=== PATIENT | male | born 1960 | race Caucasian/White ===

== ENCOUNTER 2017-02-18 11:57 | Emergency (ER) | payer OTHER ==
[2017-02-18 12:09] VITALS: BP 118/71
--- NOTE | 2017-02-18 12:39 | UCPHY ---
H & P Patient Type: New Chief Complaint Nursing Narrative: RIGHT EYELID LACERATION OCCURRED TODAY WHILE PLAYING BASKETBALL 1 HOUR DOCTOR OF PHARMACY, ELBOW HIT PT. DENIES LOC, DENIES VISUAL CHANGES. BLEEDING CONTROLLED. Time Seen by Provider: 02/18/17 12:00 HPI/ROS: Chief complaint: Right eyelid laceration HPI: 56-year-old male was playing basketball when he sustained an elbow injury to his right eye. Patient states that the elbow was coming up and did not actually strike him in the eye but he did can feel his upper eyelid get caught. Denies any vision changes. No eye pain. Does have a laceration of his upper eyelid. No headache. No nausea or vomiting. There is no loss of consciousness. Tetanus is up-to-date. ROS: 10 point Review of Systems is negative except as noted in the HPI. Physical exam: General: Awake, alert, no acute distress Eyes: There is a 1 cm stellate laceration of his upper eyelid. Does not cross the eyelid margin or border. It is into the subcutaneous only. There is no hyphema. Visual acuity is intact. There is no evidence of any ocular trauma at this time. - Personal History Current Tetanus Diphtheria and Acellular Pertussis (TDAP): Yes Tetanus Vaccine Date: WITHIN 10 YRS - Medical/Surgical History Other PMH: DENIES - Family History Significant Family History: No pertinent family hx - Social History Smoking Status: Never smoked Constitutional: Initial Vital Signs Temperature (C) 36.9 C 02/18/17 12:05 Heart Rate 66 02/18/17 12:05 Respiratory Rate 18 02/18/17 12:05 Blood Pressure 118/71 02/18/17 12:05 O2 Sat (%) 94 02/18/17 12:05 O2 Delivery Mode Room Air Allergies/Adverse Reactions: No Known Allergies Allergy (Unverified 02/18/17 12:04) Home Medications: Medication Instructions Recorded Lipitor 02/18/17 Medical Decision Making Procedures: Procedure: Laceration repair. Verbal consent was obtained from the patient. The 1 cm laceration on the right eyelid was anesthetized in the usual fashion. The wound was irrigated, draped and explored to its base with a gloved finger. There were no deep structures involved. The wound was repaired with 2, 6-0 fast-absorbing gut sutures. The wound repair was uncomplicated. The procedure was performed by myself. Departure - Departure Disposition: Home, Routine, Self-Care Clinical Impression: Laceration Condition: Good Instructions: Care For Your Absorbable Stitches (ED) Additional Instructions: Follow up with primary care physician for any redness, discharge from the wound or any concerns. Return emergency depart for any vision changes, increasing eye pain, blurry vision, double vision, or any other concerns. Referrals: Jacek Rob MD [Primary Care Provider] - As per Instructions - PQRS PQRS Measurement: NA
[2017-02-18 13:43] VITALS: PULSE 65; RESP 16; TEMP 98.6; O2SAT 92
== END 2017-02-18 12:57 | disposition home or self-care (01) ==
LOC: CED 11:57
PROC: 08QNXZZ Repair Right Upper Eyelid, External Approach (ICD-10-PCS; principal; 2017-02-18)
DX: S01.111A Laceration without foreign body of right eyelid and periocular area, initial encounter (principal); W50.0XXA Accidental hit or strike by another person, initial encounter; Y93.67 Activity, basketball
CPT/HCPCS: 12011-PO; 99202-PO; G0463-PO

== ENCOUNTER → 2017-08-24 | Outpatient (CLI) | payer OTHER | LOC: FIMAGING 09:47 | PROVIDERS: ATTEND Internal Medicine | DX: N50.819 Testicular pain, unspecified (principal); L72.0 Epidermal cyst ==

== ENCOUNTER → 2018-01-03 | Outpatient (CLI) | payer OTHER | LOC: CIMAGING 14:39 | PROVIDERS: ATTEND Surgery | DX: K40.90 Unilateral inguinal hernia, without obstruction or gangrene, not specified as recurrent (principal) | CPT/HCPCS: 76882-PO ==

== ENCOUNTER 2018-02-08 05:39 | Day surgery (SDC) | payer OTHER ==
--- NOTE | 2018-02-05 16:47 | GHP ---
[f rep st] PREOP HISTORY AND PHYSICAL DATE OF ADMISSION: 02/08/2018 CHIEF COMPLAINT: Right inguinal hernia. HISTORY OF PRESENT ILLNESS: The patient is a 57-year-old man who presented to the office complaining of right groin pain. The pain is localized to his groin and radiates laterally. He has difficulty sleeping. He was seen by Dr. Parish, who does not believe that the issue is derived from his hip. He had a colonoscopy which showed benign polyps. He denies having any difficulty with urination or bow el habits. He notices more discomfort with activity and sit-ups. He had a hernia repair on the left side approximately 10 years ago. PAST SURGICAL HISTORY: ACL repair on the left, left ankle reconstruction, fractured nose, inguinal h ernia repair. ALLERGIES: No known drug allergies. FAMILY HISTORY: None. SOCIAL HISTORY: He denies tobacco, alcohol, or recreational drug use. REVIEW OF SYSTEMS: 10-point review of systems negative aside from HPI. PHYSICAL EXAMINATION: GENERAL: Well-developed, well-nourished man in no acute distress. HEENT: No rmocephalic, atraumatic. No hearing deficits. Pupils equal and round. No scleral icterus. Mucous membranes moist. NECK: Trachea midline. RESPIRATORY: Clear to auscultation bilaterally. No incre ased work of breathing. CARDIOVASCULAR: Regular rate and rhythm. No peripheral edema. ABDOMEN: S oft and nondistended. Previous surgical scars consistent with laparoscopic hernia repair. : Norm al external genitalia. Palpable reducible hernia on the right. No left inguinal hernia on exam. SK IN: Warm and dry. MUSCULOSKELETAL: Normal gait, normal nails. PSYCH: Mood and affect normal. NE URO: Grossly intact. IMPRESSION AND PLAN: A 57-year-old man with a right inguinal hernia. He had previous laparoscopic l eft inguinal hernia repair. He will proceed with da Alexandro right inguinal hernia repair, possible eliu ateral. We discussed risks of surgery including but not limited to heart attack, stroke, blood clots , or . We discussed risk of infection, bleeding, damage to surrounding structures including pascual dder, testicle, or other surrounding structures, or recurrence. He understands the risks and would l zachary to proceed. The patient was additionally seen and evaluated by Dr. Liset Perla, who agrees with the above impression and plan. /[id number]/MODL
[2018-02-08] MEDS ORDERED: ceFAZolin 2 GM/SWFI 2 GM/20 ML SYR IVP ONE (05:56)
[2018-02-08] MEDS ORDERED: LR 1,000 ML IV ONE (05:57)
[2018-02-08] MEDS ORDERED: LIDOCAINE 1% 2 ML INJ ID PRN (05:57)
[2018-02-08] MEDS ORDERED: BUPIVACAINE 0.5% 30 ML SDV ONE (06:45)
--- NOTE | 2018-02-08 06:57 | PDHPUP ---
History & Physical Update H&P update statement: This history and physical update is based on an assessment of the patient which was completed after admission or registration (within 24 hours), but prior to the surgery/procedure. H&P update: H&P reviewed & patient examined, no change in patient's condition since H&P completed
--- NOTE | 2018-02-08 07:02 | PDANEPAE ---
ANE Past Medical History - Cardiovascular History Hx Hypertension: No Hx Arrhythmias: No Hx Chest Pain: No Hx Coronary Artery / Peripheral Vascular Disease: No Hx CHF / Valvular Disease: No Hx Palpitations: No - Pulmonary History Hx COPD: No Hx Asthma/Reactive Airway Disease: No Hx Recent Upper Respiratory Infection: No Hx Oxygen in Use at Home: No Hx Sleep Apnea: No Sleep Apnea Screening Result - Last Documented: Negative - Neurologic History Hx Cerebrovascular Accident: No Hx Seizures: No Hx Dementia: No - Endocrine History Hx Diabetes: No - Renal History Hx Renal Disorders: No - Liver History Hx Hepatic Disorders: No - Neurological & Psychiatric Hx Hx Neurological and Psychiatric Disorders: No - Cancer History Hx Cancer: No - Congenital Disorder History Hx Congenital Disorders: No - GI History Hx Gastrointestinal Disorders: Yes Gastrointestinal History Comment: hx reflux - Other Health History Other Health History: none - Chronic Pain History Chronic Pain: No - Surgical History Prior Surgeries: none ANE Review of Systems Review of Systems: - Exercise capacity METS (RN): 5 METS ANE Patient History - Allergies Allergies/Adverse Reactions: wasp venom Allergy (Severe, Uncoded 01/22/18 10:21) Dyspnea - Home Medications Home Medications: Lipitor 02/18/17 [Last Taken 02/05/18] Aspirin 81mg (*) 01/22/18 [Last Taken 02/01/18] - NPO status NPO Since - Liquids (Date): 02/07/18 NPO Since - Liquids (Time): 18:00 NPO Since - Solids (Date): 02/07/18 NPO Since - Solids (Time): 18:00 - Smoking Hx Smoking Status: Never smoked - Family Anes Hx Family Hx Anesthesia Complications: none ANE Labs/Vital Signs - Vital Signs Blood Pressure: 111/74 Heart Rate: 55 Respiratory Rate: 18 O2 Sat (%): 98 Height: 182.88 cm Weight: 79.379 kg ANE Physical Exam - Airway Neck exam: FROM Mallampati Score: Class 2 Mouth exam: normal dental/mouth exam - Pulmonary Pulmonary: no respiratory distress - Cardiovascular Cardiovascular: regular rate and rhythym - ASA Status ASA Status: II ANE Anesthesia Plan Anesthesia Plan: general endotracheal anesthesia
[2018-02-08] MEDS ORDERED: fentaNYL 250 MCG/5 ML INJ ONE (07:07)
[2018-02-08] MEDS ORDERED: LIDOCAINE 2% 100 MG/5 ML SYR ONE (07:07)
[2018-02-08] MEDS ORDERED: DEXAMETHASONE 4 MG/ML VIAL ONE ×2 (07:07)
[2018-02-08] MEDS ORDERED: MIDAZOLAM 2 MG/2 ML VIAL ONE (07:07)
[2018-02-08] MEDS ORDERED: PROPOFOL 200 MG/20 ML VIAL ONE (07:07)
[2018-02-08] MEDS ORDERED: METOCLOPRAMIDE 10 MG/2 ML VIAL ONE (07:07)
[2018-02-08] MEDS ORDERED: ROCURONIUM 100 MG/10 ML VIAL ONE (07:07)
[2018-02-08] MEDS ORDERED: KETOROLAC 30 MG/1 ML SDV ONE (08:38)
--- NOTE | 2018-02-08 09:00 | POSTOPPROG ---
Post Op Note Date of Operation: 02/08/18 Surgeon: Liset Perla General Ii Farmworker: jc Anesthesiologist: deena Anesthesia: GET(General Endotracheal) Pre-op Diagnosis: RIH Post-op Diagnosis: RIH Indication: 57 yo with lap RIH Procedure: Davinci RIH Findings: Small RIH, sigmoid colon to midline Inf/Abcess present in the surg proc area at time of surgery?: No Depth: Superfical (Skin SQ) EBL: Minimal Specimen(s): none
[2018-02-08] MEDS ORDERED: ALBUTEROL 3 ML DEYVIAL IH PRN (09:13)
[2018-02-08] MEDS ORDERED: ONDANSETRON 4 MG/2 ML VIAL IVP PRN (09:13)
[2018-02-08] MEDS ORDERED: NALOXONE HCL 0.4 MG/ML INJ IVP PRN (09:13)
[2018-02-08] MEDS ORDERED: HYDROmorphONE/DILAUDID 2 MG/ML INJ IVP PRN (09:13)
[2018-02-08] MEDS ORDERED: ACETAMINOPHEN 500 MG TAB PO PRN (09:13)
[2018-02-08] MEDS ORDERED: MEPERIDINE 25 MG/ML SYR IVP PRN (09:13)
[2018-02-08] MEDS ORDERED: oxyCODONE IR 5 MG TAB PO PRN (09:13)
[2018-02-08] MEDS ORDERED: fentaNYL 100 MCG/2 ML INJ IVP PRN (09:13)
[2018-02-08] MEDS ORDERED: HYDROCODONE/APAP 5/325 TAB PO PRN (09:13)
--- NOTE | 2018-02-08 09:14 | POSTANESTH ---
Post Anesthetic Evaluation Cardiovascular Status: Similar to Pre-Op Cond Respiratory Status: Similar to Pre-op Cond. Level of Consciousness/Mental Status: Alert and Oriented, Mildly Sleepy, Arousable Pain Control: Adequate, Prn Tx Ordered Nausea/Vomiting Control: Adequate, Prn Tx Ordered Complications Possibly Related to Anesthesia: None Noted
[2018-02-08 09:39] VITALS: RESP 12
[2018-02-08 09:46] VITALS: PULSE 61
[2018-02-08 10:19] VITALS: BP 114/75; O2SAT 98
[2018-02-08 10:30] VITALS: TEMP 97.5
--- NOTE | 2018-02-10 09:13 | GOP ---
[f rep st] OPERATIVE REPORT DATE OF OPERATION: 02/08/2018 SURGEON: Liset Perla MD FINISHED CLOTH EXAMINER: Etta Pruett PA-C ANESTHESIA: General. ANESTHESIOLOGIST: Jon Sullivan MD PREOPERATIVE DIAGNOSIS: Right inguinal hernia. POSTOPERATIVE DIAGNOSIS: Right inguinal hernia. PROCEDURE PERFORMED: Da Alexandro-assisted right inguinal hernia repair with mesh. FINDINGS: Small right inguinal hernia. Sigmoid colon adhered to midline. SPECIMENS: None. ESTIMATED BLOOD LOSS: Minimal. INDICATIONS: The patient is a 57-year-old man who has a history of a previous laparoscopic left ingu inal hernia repair with mesh, who presents with a right inguinal hernia. He also had symptoms of love k pain as well as pain down his right leg and performed workup which did show a small right inguinal hernia. We discussed that this may not be the cause of all his pain. DESCRIPTION OF PROCEDURE: Patient was brought into the operating room, placed supine on the table; a nd general anesthesia was administered. His abdomen was prepped and draped in the usual sterile fash ion. I infiltrated all sites with 0.5% Marcaine prior to making incisions. I made an incision at hi s umbilicus. I elevated it. I inserted the Veress needle. It passed the hanging drop test. The ab domen insufflated easily to a pressure of 15 mmHg. I placed a trocar at this site with the camera. There were no injuries from Veress needle placement. He did have lower midline adhesions; however, I was able to see his previous left inguinal hernia repair, which appeared intact, as well as a small defect on the right side. I inserted 2 trocars under direct vision, one on the right upper abdomen a nd 1 on the left upper abdomen. I placed him in the Trendelenburg position. I docked the robot and moved to the console. I used the scissors to create a peritoneal flap. I continued my dissection pa st the midline, and I could identify the pubis. His epigastric vessel was dissected and protected to keep this anterior to the plane. I reduced a very small fat containing hernia along the cord and co rd structures, which was lateral to the epigastric vessels. There was no direct inguinal hernia. Th ere was no evidence of femoral hernia. Once I was satisfied with my dissection, I placed a piece of laparoscopic self-fixating ProGrip mesh. I then closed the peritoneal flap and sutured this with 90 V-Loc. The abdomen was infected. It appeared that the midline adhesions included the sigmoid colon. Everything was protected from harm. The ports removed under direct vision. The abdomen allowed to desufflate. I moved back to the console. The instruments were removed. The robot was undocked. S kin closed with 4-0 Monocryl. Dermabond was applied. He was awakened in the operating room, extubat ed and transferred to PACU in stable condition. /[id number]/MODL
== END 2018-02-08 10:25 | disposition home or self-care (01) ==
LOC: FSGY 05:39
PROVIDERS: ATTEND Surgery
PROC: 0YU54JZ Supplement Right Inguinal Region with Synthetic Substitute, Percutaneous Endoscopic Approach (ICD-10-PCS; principal; 2018-02-08 07:15)
DX: K40.90 Unilateral inguinal hernia, without obstruction or gangrene, not specified as recurrent (principal); K21.9 Gastro-esophageal reflux disease without esophagitis; K63.5 Polyp of colon
CPT/HCPCS: C1781; J0690; J1100; J1885; J2001; J2250; J2704; J2765; J3010

== ENCOUNTER → 2018-03-08 | Outpatient (CLI) | payer OTHER ==
[~2018-03-08] MED LIST: IOPAMIDOL (ISOVUE-300) 100 ML BTL ONE
== END ==
LOC: FIMAGING 14:28
PROVIDERS: ATTEND Surgery
DX: L76.82 Other postprocedural complications of skin and subcutaneous tissue (principal); Q62.39 Other obstructive defects of renal pelvis and ureter; M51.36 Other intervertebral disc degeneration, lumbar region
CPT/HCPCS: Q9967

== ENCOUNTER 2018-06-08 07:48 | Emergency (ER) | payer OTHER ==
[2018-06-08 07:55] VITALS: BP 113/67
--- NOTE | 2018-06-08 07:55 | EDPHY ---
H & P Time Seen by Provider: 06/08/18 07:50 HPI/ROS: CHIEF COMPLAINT: Trouble urinating HISTORY OF PRESENT ILLNESS: Surgery on June 05, laser prostatectomy with Burden catheter removed on . Urinated about 2000 mL in the next 24 hr and then since 3:00 p.m. Yesterday no urine output or minimal urine output. He feels a little bit bloated but does not have any testicular or penile symptoms. No fever or chills. He is on antibiotics since his surgery and has a little bit of occasional blood in his urine but no specific dysuria or cloudy urine. REVIEW OF SYSTEMS: Eye: No symptoms ENT: No symptoms Cardiac: No chest pain Pulmonary: Slight cough after surgery but not short of breath Abdomen: No vomiting or diarrhea Musculoskeletal: no back pain Skin: no rash Neuro: No weakness or numbness in legs Constitutional: no fever : HPI A comprehensive 10 point review of systems is otherwise negative aside from elements mentioned in the history of present illness. PAST MEDICAL HISTORY: History and physical dated 02/08/2018 by Alejandra personally reviewed includes left ACL repair, left ankle reconstruction, inguinal hernia repair on the left and the right Social history: Nonsmoker General Appearance: Alert and conversant, cooperative. Eyes: No scleral icterus. ENT, Mouth: Normal mucous membranes. Respiratory: Normal respiratory effort, breath sounds equal, lungs are clear to auscultation. Cardiovascular: Regular rate and rhythm. Gastrointestinal: Abdomen is soft and non tender. Normal male . I do not palpate suprapubic fullness. Neurological: Alert, ambulatory back to the room. Skin: Warm and dry, no rashes. Musculoskeletal: No peripheral edema. Psychiatric: Not agitated. Emergency Department course/MDM: Bedside bladder scan shows approximately 200 mL, my bladder ultrasound shows nondistended bladder. Check creatinine, normal. Encouraged to continue increasing oral fluid intake, does not appear to require catheterization at this time. Follow-up with his urologist. Smoking Status: Never smoked Constitutional: Initial Vital Signs Temperature (C) 36.7 C 06/08/18 07:52 Heart Rate 68 06/08/18 07:52 Respiratory Rate 16 06/08/18 07:52 Blood Pressure 113/67 06/08/18 07:52 O2 Sat (%) 97 06/08/18 07:52 O2 Delivery Mode Room Air Allergies/Adverse Reactions: wasp venom Allergy (Severe, Uncoded 01/22/18 10:21) Dyspnea Home Medications: Medication Instructions Recorded Lipitor 02/18/17 Aspirin 81mg (*) 01/22/18 Departure - Departure Disposition: Home, Routine, Self-Care Clinical Impression: Decreased urine output Condition: Good Instructions: Laser Prostatectomy (DC) Referrals: Jacek Rob MD [Primary Care Provider] - As per Instructions Vinicio Proctor MD [Medical Doctor] - As per Instructions
== END 2018-06-08 08:31 | disposition home or self-care (01) ==
DX: R39.12 Poor urinary stream (principal); Z79.82 Long term (current) use of aspirin
CPT/HCPCS: 82435-PO; 82565-PO; 82947-PO; 84132-PO; 84295-PO; 84520-PO; 85014-PO

== ENCOUNTER → 2018-09-27 | Outpatient (CLI) | payer OTHER ==
[~2018-09-27] MED LIST changes: +GADOBUTROL 10 ML VIAL IVP ONE; +GLUCAGON HCL 0.3 MG in SYRINGE 0.3 ML IVP ONE; -IOPAMIDOL (ISOVUE-300) 100 ML BTL ONE
== END ==
LOC: FIMAGING 09:47
PROVIDERS: ATTEND Physician Assistant
DX: R93.3 Abnormal findings on diagnostic imaging of other parts of digestive tract (principal); R10.31 Right lower quadrant pain
CPT/HCPCS: A9585; J1610

== ENCOUNTER 2018-12-11 22:29 | Emergency (ER) | payer OTHER ==
[2018-12-11] MEDS ORDERED: ONDANSETRON 4 MG/2 ML VIAL ONE (22:49)
[2018-12-11] MEDS ORDERED: ONDANSETRON 4 MG/2 ML VIAL IVP ONE (23:02)
[2018-12-11] MEDS ORDERED: NS 1,000 ML IV ONE (23:02)
--- NOTE | 2018-12-11 23:07 | EDPHY ---
H & P Stated Complaint: ONGOING INTESTIONAL PAIN AND VOMITING, LLQ PAIN Time Seen by Provider: 12/11/18 22:36 HPI/ROS: Chief Complaint: Abdominal pain HPI: 58-year-old male presenting with left-sided abdominal pain which has been my skiing when he for the last several days. At worst is a 10/10. Right now is a 5/10. He is associated with some nausea vomiting. It is described in the left side radiating down to his left groin. No urinary urgency frequency. No fevers or chills. He was told that he had a stone in his left kidney on CT scan about a year ago. No blood in his urine. No fevers or chills. He feels better when he gets up and walks around. There are no other aggravating or alleviating factors. He has been attempting a colon cleanse for the last 2 days with his diet with no relief. ROS: 10 systems were reviewed and were negative except those elements noted in the HPI. PMH: BPH status post green light surgery, hernia repair Social History: No smoking, no alcohol, no recreational drug use Family History: non-contributory Physical Exam: Gen: Awake, Alert, No Distress HEENT: Nose: no rhinorrhea Eyes: PERRLA, EOMI Mouth: Moist mucosa Neck: Supple, no JVD Chest: nontender, lungs clear to auscultation Heart: S1, S2 normal, no murmur Abd: Soft, non-tender, no guarding Back: no CVA tenderness, no midline tenderness Ext: no edema, non-tender Skin: no rash Neuro: CN II-XII intact, Sensation grossly intact, Strength 5/5 in bilateral upper and lower extremities - Personal History Current Tetanus/Diphtheria Vaccine: Yes Current Tetanus Diphtheria and Acellular Pertussis (TDAP): Yes Tetanus Vaccine Date: WITHIN 10 YRS - Medical/Surgical History Hx Asthma: No Hx Chronic Respiratory Disease: No Hx Diabetes: No Hx Cardiac Disease: No Hx Renal Disease: No Hx Cirrhosis: No Hx Alcoholism: No Hx HIV/AIDS: No Hx Splenectomy or Spleen Trauma: No Other PMH: hyperlipidemia, hernia surgery 02/03. laser prostate surgery 06/05 - Social History Smoking Status: Never smoked Constitutional: Initial Vital Signs Temperature (C) 36.7 C 12/11/18 22:32 Heart Rate 83 12/11/18 22:32 Respiratory Rate 18 01/23/19 22:32 Blood Pressure 165/99 H 12/11/18 22:32 O2 Sat (%) 97 12/11/18 22:32 O2 Delivery Mode Nasal Cannula O2 (L/minute) 2 Allergies/Adverse Reactions: Sulfa (Sulfonamide Antibiotics) Allergy (Verified 12/11/18 22:35) wasp venom Allergy (Severe, Uncoded 01/22/18 10:21) Dyspnea Home Medications: Medication Instructions Recorded Lipitor 02/18/17 Aspirin 81mg (*) 01/22/18 Medical Decision Making - Diagnostics Imaging Results: Renal ultrasound shows mild to moderate left hydronephrosis with a small echogenic focus layering in the bladder which could possibly reflect a recently passed ureteral stone. Study interpreted by Dr. Ward Britt, direct Radiology. ED Course/Re-evaluation: Urinalysis shows hematuria without pyuria. Ultrasound shows left hydronephrosis with an echogenic foci is in the bladder consistent with a recently passed stone. Patient's pain is controlled. Will discharge with follow-up with his urologist, return for any concerns. - Data Points Laboratory Results: Laboratory Results 12/11/18 23:05 12/11/18 23:05 12/12/18 12/11/18 12/11/18 00:00 23:05 23:05 WBC 6.98 10^3/uL 10^3/uL (3.80-9.50) RBC 4.54 10^6/uL 10^6/uL (4.40-6.38) Hgb 14.6 g/dL g/dL (13.7-17.5) Hct 42.5 % % (40.0-51.0) MCV 93.6 fL fL (81.5-99.8) MCH 32.2 pg pg (27.9-34.1) MCHC 34.4 g/dL g/dL (32.4-36.7) RDW 12.4 % % (11.5-15.2) Plt Count 228 10^3/uL 10^3/uL (150-400) MPV 9.7 fL fL (8.7-11.7) Neut % (Auto) 58.9 % % (39.3-74.2) Lymph % (Auto) 30.5 % % (15.0-45.0) [place] % (Auto) 8.7 % % (4.5-13.0) Eos % (Auto) 1.3 % % (0.6-7.6) Baso % (Auto) 0.3 % % (0.3-1.7) Nucleat RBC Rel Count 0.0 % % (0.0-0.2) Absolute Neuts (auto) 4.11 10^3/uL 10^3/uL (1.70-6.50) Absolute Lymphs (auto) 2.13 10^3/uL 10^3/uL (1.00-3.00) Absolute Monos (auto) 0.61 10^3/uL 10^3/uL (0.30-0.80) Absolute Eos (auto) 0.09 10^3/uL 10^3/uL (0.03-0.40) Absolute Basos (auto) 0.02 10^3/uL 10^3/uL (0.02-0.10) Absolute Nucleated RBC 0.00 10^3/uL 10^3/uL (0-0.01) Immature Gran % 0.3 % % (0.0-1.1) Immature Gran # 0.02 10^3/uL 10^3/uL (0.00-0.10) Sodium 136 mEq/L mEq/L (135-145) Potassium 3.5 mEq/L mEq/L (3.5-5.2) Chloride 102 mEq/L mEq/L (97-110) Carbon Dioxide 26 mEq/l mEq/l (22-31) Anion Gap 8 mEq/L mEq/L (6-14) BUN 23 mg/dL mg/dL (7-23) Creatinine 0.8 mg/dL mg/dL (0.7-1.3) Estimated GFR > 60 Glucose 113 mg/dL H mg/dL (70-100) Calcium 9.8 mg/dL mg/dL (8.5-10.4) Urine Color YELLOW Urine Appearance HAZY Urine pH 5.0 (5.0-7.5) Ur Specific [place] 1.020 (1.002-1.030) Urine Protein NEGATIVE (NEGATIVE) Urine Ketones 1+ H (NEGATIVE) Urine Blood 1+ H (NEGATIVE) Urine Nitrate NEGATIVE (NEGATIVE) Urine Bilirubin NEGATIVE (NEGATIVE) Urine Urobilinogen 2.0 EU H EU (0.2-1.0) Ur Leukocyte Esterase NEGATIVE (NEGATIVE) Urine RBC 50-182 /hpf H /hpf (0-3) Urine WBC 5-10 /hpf H /hpf (0-3) Ur Epithelial Cells NONE SEEN /lpf /lpf (NONE-1+) Urine Bacteria 2+ /hpf H /hpf (NONE SEEN) Urine Mucus 1+ /lpf /lpf (NONE-1+) Urine Sperm PRESENT /hpf /hpf (NONE SEEN) Urine Glucose NEGATIVE (NEGATIVE) Medications Given: Discontinued Medications Fentanyl (Sublimaze) 50 mcg IVP EDNOW ONE Stop: 12/11/18 23:22 Last Admin: 12/12/18 00:27 Dose: 50 mcg Sodium Chloride (Ns) 1,000 mls @ 0 mls/hr IV EDNOW ONE; Wide Open PRN Reason: Protocol Stop: 12/11/18 23:03 Last Admin: 12/11/18 23:03 Dose: 1,000 mls Ketorolac Tromethamine (Toradol) 15 mg IVP EDNOW ONE Stop: 12/12/18 00:13 Last Admin: 12/12/18 00:21 Dose: 15 mg Ondansetron HCl (Zofran) 4 mg IVP EDNOW ONE Stop: 12/11/18 23:03 Last Admin: 12/11/18 23:04 Dose: 4 mg Departure - Departure Disposition: Home, Routine, Self-Care Clinical Impression: Kidney stone Condition: Good Instructions: Kidney Stones (ED), Hydrocodone/Acetaminophen (By mouth) Additional Instructions: Follow up with urologist, Dr. Proctor, in 2-3 days for further evaluation. May take ibuprofen, 600 mg 3 times a day for pain. You may take hydrocodone with acetaminophen for breakthrough pain. Return to the emergency department for worsening pain, uncontrolled nausea vomiting, fevers, chills, or any other concerns. Referrals: Jacek Rob MD [Primary Care Provider] - As per Instructions Vinicio Proctor MD [Medical Doctor] - As per Instructions
[2018-12-11 23:17] LABS: PLATELET COUNT 228 10^3/uL (150-400)
[2018-12-11] MEDS ORDERED: fentaNYL 100 MCG/2 ML INJ IVP ONE (23:21)
[2018-12-12] MEDS ORDERED: KETOROLAC 15 MG/1 ML SDV IVP ONE (00:12)
[2018-12-12] MEDS ORDERED: KETOROLAC 15 MG/1 ML SDV ONE (00:13)
[2018-12-12] MEDS ORDERED: HYDROCOD/APAP 5/325 PREPACK#6 BTL TAKEHOME ONE (01:05)
[2018-12-12 01:22] VITALS: BP 119/75
== END 2018-12-12 01:28 | disposition home or self-care (01) ==
DX: N20.0 Calculus of kidney (principal); E86.9 Volume depletion, unspecified
CPT/HCPCS: 96374; J1885; J2405; J3010

== ENCOUNTER → 2019-01-17 | Outpatient (CLI) | payer OTHER | LOC: FIMAGING 12:48 ==